=== PATIENT | male | born 1970 | race Caucasian/White ===

== ENCOUNTER 2023-10-30 07:19 | Outpatient (CLI) | payer MEDICARE, BC, SELFPAY ==
--- NOTE | 2023-10-30 | CA_ITS ---
APPROVED REPORT Exam: Exercise Treadmill Technologist: Valentina Leone, Ht: 5 ft 4 in Wt: 192 lbs BSA: 1.92 m2 HR: 66 bpm BP: 110/74 mmHg Rhythm: NSR, ST-T ABNS INFERIORLY, EARLY REPOLARIZATION CHANGES, PVC Medical History Medical History: HTN, , Hyperlipidemia, Diabetes, Smoking Medications: Lisinopril,,,,, Omeprazole,,,,, Aspirin,,,,, Metoprolol Tartrate,,,,, Atorvastatin,,,,, Temazepam,,,,, EMpagliflozin,,,,, GlPIZIDE,,,,, Ozempic,,,,, Allergies: No known drug allergies Cardiac Risk Factors: HTN, Hyperlipidemia, Diabetes , Smoking Stress Test Details Test: Manual Treadmill HR Resting HR: 67 bpm Max Heart Rate (APMHR): 166 bpm Max HR Achieved: 155 bpm Target HR (85% APMHR): 141 bpm % of APMHR: 93 Recovery HR: 101 bpm HR response to stress: Normal HR response to stress BP Resting BP: 110.0/74 mmHg Max BP: 148/79 mmHg Recovery BP: 136.0/73.0 mmHg BP response to stress: Normal blood pressure response to stress. ECG Resting ECG: NSR, ST-T ABNS INFERIORLY, EARLY REPOLARIZATION CHANGES, PVC Stress EC mm upsloping ST depression Arrhythmia: PVCs Recovery ECG: Return to baseline within 3 minutes of recovery Recovery Arrhythmia: PVCs Clinical Exercise duration: 09:53 min Highest Stage Achieved: Stage 4: 4.2 mph at 16% grade. Exercise capacity: 11.9 METs Overall Exercise Capacity for Age: Average Stress ECG Conclusion PT EXERCISED 9:53 ON NAVEED PROTOCOL MAX HR: 150 % OF PM: 90% MAX BP: 148/79 METS: 11.9 TEST STOPPED DUE TO: SOA, FATIGUE MILD CHEST TIGHTNESS AND SOA FREQUENT MULTIFOCAL PVCS WITH PERIODS OF VENT. BIGEMINY, RARE VENT. COUPLET [address] DEPRESSION LATERALLY CONCLUSION AVERAGE EXERCISE CAPACITY EKG CHANGES EQUIVOCAL FOR ISCHEMIA FREQUENT PVCS PRESENT AT REST AND WITH EXERTION MYOVIEW IMAGES REPORTED SEPARATELY Test Summary REST . . . . . . . Standing REST . . . . . . . Sitting REST 03:05 0.0 0.0 67 . 110/ 74 . . Stage 1 01:00 10.0 1.7 89 . . . . Stage 1 02:00 10.0 1.7 93 . . . . Stage 1 03:00 10.0 1.7 96 . 114/ 68 . . Stage 2 01:00 12.0 2.5 97 . . . . Stage 2 02:00 12.0 2.5 106 . . . . Stage 2 03:00 12.0 2.5 108 . 130/ 74 . . Stage 3 01:00 14.0 3.4 138 . . . . Stage 3 02:00 14.0 3.4 127 . . . . Stage 3 03:00 14.0 3.4 145 . . . . Stage 4 . . . . . . . Protocol changed to Manual Treadmill Stage 4 00:53 16.0 3.8 98 . . . Stop exercise at 09:53 RECOVERY 01:00 0.0 0.0 125 . . . . RECOVERY 02:00 0.0 0.0 108 . . . . RECOVERY 03:00 0.0 0.0 105 . 139/ 72 . . RECOVERY 04:00 0.0 0.0 98 . 148/ 79 . . RECOVERY 05:00 0.0 0.0 100 . 136/ 73 . . RECOVERY 05:21 0.0 0.0 98 . 136/ 73 . . Electronically signed by : Valentina Moreno MD 11/01/2023 23:05:05
--- NOTE | 2023-10-30 08:04 | NM_ITS ---
APPROVED REPORT Exam: Nuclear Stress Test Indication: Chest pain, SOB, HTN, High cholesterol, DM, Family history, CAD Patient Location: Outpatient Stress Tech: Valentina Leone [place] Tech:Sharron Lang, ARRT, RT (R)(N) Ht: 5 ft 4 in Wt: 192 lbs HR: 67 bpm BP: 110/74 mmHg BSA: 1.92 m2 TID: 0.93 BMI: 32.9 History: Chest pain, SOB, HTN, High cholesterol, DM, Family history, CAD Procedure: Patient exercised on Darvin protocol 9:53 minutes and sec, resting heart rate 67 bpm, resting blood pressure 110/74 mmHg, with exercise maximum heart rate achived was 155 bpm which is 93 % of the maximum predicted heart rate and blood pressure was 148/79 mmHg. Test was stopped due to SOB. Patient denied any complaint of chest pain. Patient has Average exercise capacity, achieved 11.9 METs of workload on treadmill, the blood pressure response to exercise was Normal. Cardiac Stress and Resting SPECT Images: Cardiac Stress and Resting SPECT images were obtained using technetium 99m Myoview 30.5 mCi stress and 10.55 mCi at rest. Resting and stress imaging in supine and prone positions demonstrate a large sized, moderate, fixed perfusion defect in the basal to mid inferior LV wall. There is also a medium sized, moderate, reversible perfusion defect in the basal to mid anterior LV wall. Gated imaging demonstrates normal global LV systolic function. There is mild hypokinesis of the basal anterior and basal inferior LV lawrence. LVEF is calculated at 54%. Conclusion: Large sized, moderate, fixed perfusion defect in the basal to mid inferior LV wall. There is also a medium sized, moderate, reversible perfusion defect in the basal to mid anterior LV wall. These findings suggest the presence of reversible ischemia. Gated imaging demonstrates normal global LV systolic function. There is mild hypokinesis of the basal anterior and basal inferior LV lawrence. LVEF is calculated at 54%. Electronically signed by : Valentina Moreno MD 11/01/2023 23:09:07
[2023-10-30] MEDS: ISOTOPE MYOVIEW (PER STUDY) 1 DOSE IV (09:24)
[2023-10-30] MEDS: SODIUM CHLORIDE 0.9% 10ML SYR (RAD ONLY) 10 ML IV ×2 (09:24)
== END 2023-10-30 23:59 | disposition home or self-care (01) ==
LOC: RAD 07:21
PROVIDERS: PCP Nurse Practitioner Family; Visit Provider Internal Medicine
DX: R06.02 Shortness of breath (principal); R00.2 Palpitations; I11.9 Hypertensive heart disease without heart failure; I25.118 Atherosclerotic heart disease of native coronary artery with other forms of angina pectoris; Z87.891 Personal history of nicotine dependence
CPT/HCPCS: 78452; 93017; 93018; A9502

== ENCOUNTER 2023-11-02 10:00 | Outpatient (CLI) | payer MEDICARE, BC, SELFPAY ==
--- NOTE | 2023-11-02 10:05 | CA_ITS ---
APPROVED REPORT EXAM: Comprehensive 2D, Doppler, and color-flow Echocardiogram Barrel Rifler Broach: Fadumo Pete RDCS Ht: 5 ft 4 in Wt: 192lbs BSA: 1.92 BP: 107/72 mmHg Indications: SOA,HTN,HLP,CAD M-Mode Dimensions RVDd 2.50 cm (0.9-2.6) LA Diam 3.80 cm (1.9-4.0) LVDd 5.40 cm (3.5-5.7) LVDs 3.47 cm (3.5-5.7) IVSd 0.57 cm (0.6-1.1) PWd 0.57 cm (0.6-1.1) EF (Teich) 64.80% FS 35.70% EDV (Teich) 141.30 mL TAPSE 3.54 (<1.7) ESV (Teich) 49.80 mL LV Diastology E Decel Time 173 (160-240 msec) E/A Ratio 1.2 Mitral Valve MV E Max Donn. 74.0 (40-130 cm/s) MV A Velocity 60.0 (40-130 cm/s) E/A Ratio 1.24 MV PHT 51.0 ms Left Ventricle The left ventricle is normal size. The left ventricular systolic function is normal. The left ventricular ejection fraction is within the normal range. There is normal left ventricular wall thickness. There is normal LV segmental wall motion. The left ventricular diastolic function is normal. LVEF is 60%. Right Ventricle The right ventricular free wall is not very well-visualized, but the right ventricle grossly appears normal in size and function. Atria The left atrium size is normal. The right atrium size is normal. There is no Doppler evidence of interatrial shunt. Aortic Valve The aortic valve opens well. There is no aortic valvular stenosis. No aortic regurgitation is present. Mitral Valve The mitral valve is normal in structure. No evidence of mitral valve stenosis. There is no mitral valve regurgitation noted. Tricuspid Valve The tricuspid valve leaflets are thin and pliable. Trace tricuspid regurgitation. There is insufficient TR jet to estimate RVSP. Pulmonic Valve The pulmonary valve is normal in structure. Mild pulmonic regurgitation. Great Vessels The aortic root is normal in size. The ascending aorta is normal in size. IVC is normal in size and collapses >50% with inspiration. Pericardium There is no pericardial effusion. Other Information Study Quality: Fair Conclusion Normal LV systolic function. RV free wall is not very well-visualized, but the RV grossly appears normal in size and function. Mild PI. Electronically signed by : Valentina Moreno MD 11/03/2023 00:46:48
== END 2023-11-02 23:59 | disposition home or self-care (01) ==
LOC: RT 10:01
PROVIDERS: PCP Nurse Practitioner Family; Visit Provider Internal Medicine
DX: R06.02 Shortness of breath (principal); R00.2 Palpitations; I11.9 Hypertensive heart disease without heart failure; I25.118 Atherosclerotic heart disease of native coronary artery with other forms of angina pectoris; Z87.891 Personal history of nicotine dependence
CPT/HCPCS: 93306

== ENCOUNTER 2023-11-06 08:17 | Day surgery (SDC) | payer MEDICARE, BC, SELFPAY ==
[2023-11-06] VITALS (10 sets, daily range): BP systolic 102–125; BP diastolic 65–86; PULSE 74–97; RESP 15–19; TEMP 36.7; O2SAT 96–99; BMI 32.4
--- NOTE | 2023-11-06 07:01 | IR_ITS ---
APPROVED REPORT Patient Location: Outpatient Manager Technical: MARTÍN Avila RT (R) PROCEDURES Left heart catheterization Left ventriculogram Selective coronary angiogram INDICATION Abnormal Myoview, Coronary artery disease, Angina pectoris Informed consent was obtained prior to the procedure. COMPLICATIONS None Estimated Blood Loss: Less than 10 mls TECHNIQUE One percent lidocaine used to anesthetize the right anterior aspect of the wrist. The right radial artery was accessed via the Seldinger technique. A 6 Angolan sheath was placed in the right radial artery. 2.5 mg of Verapamil, 800 mcg of nitroglycerin, 1mg Lidocaine and 5000 U Heparin were given through the arterial sheath. The papa catheter was also used to perform left heart catheterization, left ventriculogram and selective coronary angiogram. At the end of the procedure the sheath was removed good hemostasis was achieved using Traclet band, patient was transferred to the postop holding area in stable condition. ANGIOGRAPHIC RESULTS The left main artery Normal The left anterior descending artery Proximal segment has a stent which is widely patent free of in-stent restenosis with excellent proximal distal transitioning. The remaining vessel is widely patent with mild luminal regularities. ELISA II flow is present The circumflex artery Patent with mild diffuse 10 to 20% luminal regularities The right coronary artery Large dominant with mild 10 to 20% luminal regularities The ROSARIO ventriculogram reveals Normal 65% The left ventricular end-diastolic pressure 15 to 20 mmHg IMPRESSION Widely patent proximal LAD stent ELISA II flow down the LAD and circumflex artery consistent with endothelial dysfunction Normal ejection fraction Borderline LVEDP PLAN 1. Risk factor modification 2. Continue medical management 3. Treatment of endothelial dysfunction which is likely etiology for patient's symptoms Electronically signed by : Melchor Plascencia MD 11/06/2023 12:44:30
[2023-11-06 08:42] LABS: Basophils # 0.1 K/mm3 (0-0.2); Basophils % 0.6 % (0.1-2.0); Eosinophils # 0.3 K/mm3 (0.0-0.4); Eosinophils % 3.6 % (0.1-12.0); Hematocrit 50.8 % (42.0-52.0); Lymphocytes # 1.9 K/mm3 (0.7-4.5); Lymphocytes % 22.8 % (10-50); Mean Corpuscular HGB Conc 31.6 g/dL (31.8-35.4); Mean Corpuscular Hemoglobin 30.4 pg (27.0-31.2); Mean Corpuscular Volume 96.4 fl (80-94); Mean Platelet Volume 6.6 fl (7.4-10.4); Monocytes # 0.8 K/mm3 (0.1-1.0); Monocytes % 9.5 % (1.7-9.3); Neutrophils # 5.2 K/mm3 (1.8-7.8); Neutrophils % 63.5 % (37.0-80.0); Platelet Count 224 K/mm3 (142-424); Red Blood Count 5.27 M/mm3 (4.60-6.20); White Blood Count 8.2 K/mm3 (4.8-10.8)
[2023-11-06 08:52] LABS: Chloride 110 mmol/L (98-107); Potassium 4.3 mmoL/L (3.5-5.1); Sodium 141 mmol/L (136-145)
[2023-11-06 08:55] LABS: Anion Gap 9.3 mEq/L (5-15); Blood Urea Nitrogen 20 mg/dl (9-20); Calcium 9.2 mg/dl (8.4-10.2); Carbon Dioxide 26 mmol/L (22.0-30.0); Creatinine Clearance Estimated 102 mL/min (50-200); Estimated Glomerular Filt Rate 78 ml/min (>60); GFR (African American) 94 ML/MIN (>60); Glucose 109 mg/dl (74-100)
[2023-11-06] MEDS: LIDOCAINE 1% 10ML MDV 20 ML IJ (11:55)
[2023-11-06] MEDS: VERAPAMIL 2.5MG/ML 2ML VIAL 2.5 MG IV (11:55)
[2023-11-06] MEDS: diphenhydrAMINE 50MG/ML VIAL 50 MG IV (11:55)
[2023-11-06] MEDS: 0.9 % SODIUM CHLORIDE 500 ML 25 ML IV (11:56)
[2023-11-06] MEDS: HEPARIN 1,000 UNITS/500ML NS (CATH LAB) 3000 UNIT IV (11:57)
[2023-11-06] MEDS: HEPARIN 1,000 UNITS/ML 10ML VIAL (CATH LAB) 10000 UNIT IV (11:57)
[2023-11-06] MEDS: NITROGLYCERIN 800MCG/8ML SYR (CATH LAB) 800 MCG IA (11:58)
[2023-11-06] MEDS: FENTANYL 100MCG/2ML VIAL 50 MCG IV (12:19)
[2023-11-06] MEDS: MIDAZOLAM HCL 1MG/1ML 5ML VIAL 1 MG IV (12:19)
[2023-11-06] MEDS: IOPAMIDOL-370 (76%);100ML BOTTLE 50 ML IV (13:24)
== END 2023-11-06 14:31 | disposition home or self-care (01) ==
PROVIDERS: PCP Nurse Practitioner Family; Visit Provider Internal Medicine
DX: I25.118 Atherosclerotic heart disease of native coronary artery with other forms of angina pectoris (principal); Z79.899 Other long term (current) drug therapy; I11.9 Hypertensive heart disease without heart failure; E11.9 Type 2 diabetes mellitus without complications; Z79.84 Long term (current) use of oral hypoglycemic drugs; E78.5 Hyperlipidemia, unspecified; Z95.5 Presence of coronary angioplasty implant and graft; Z87.891 Personal history of nicotine dependence
CPT/HCPCS: 36415; 80048; 85025; 93458; 99152; C1725; C1769; J1200; J1644; J2250; J3010; Q9967